=== PATIENT | female | born 1985 | race Caucasian/White ===

== ENCOUNTER 2017-03-26 14:40 | Emergency (ER) | payer OTHER ==
[~2017-03-26] VITALS: Ht 172.7 cm; Wt 74.8 kg
--- NOTE | ~2017-03-26 | CT4 ---
STS. [facility] A Service of [facility] RADIOLOGY TEXT RESULTS PATIENT: BEULAH HADDAD LOCATION: SED : 84 UNIT #: [id number] AGE: [address]: LAST HATCH SEX: F ORDER DR: [id number] [address] [address] [id number] MR#: [id number] Acc #: [id number] NAME: BEULAH HADDAD : 1985 SEX: F STUDY DATE/TIME: 03/26/2017 16:53 UNIT: SED ROOM: STUDY DESCRIPTION: CT Abd and Pelv Wo Cont Attending Physician: Last Hatch Ordering Physician: Last Hatch MEDICAL IMAGING REPORT This report is preliminary unless electronic signature is present. EXAM CT abdomen and pelvis without IV contrast COMPARISON April 18, 2021. INDICATION A 31-year-old female with left-sided flank and abdominal pain and emesis for [address] imaging abdomen and pelvis was performed without IV contrast. Coronal and sagittal reformats were constructed. Lack of IV contrast limits evaluation of adenopathy, vasculature and viscera. This CT exam was performed with one or more of the following radiation dose reduction techniques: automatic exposure control, adjustment of mA and/or kV according to patient size, and iterative reconstruction. FINDINGS There is a small fat-containing umbilical hernia. Small posterior disc protrusion L5-S1. No acute fractures or suspicious osseous lesions. Minimal subsegmental pleural-based multifocal atelectasis in both lower lobes dependently. Mild hepatomegaly with length of 18.3 cm. Unenhanced gallbladder, pancreas, spleen, adrenal glands and left kidney within normal limits. There is nonobstructive calculus in the right kidney. No ureteral calculi. No hydronephrosis or hydroureter. Urinary bladder is unremarkable. Unenhanced appearance of the uterus is unremarkable. No adnexal maximal masses are seen on this noncontrast exam. No evidence of STS. [facility] A Service of [facility] RADIOLOGY TEXT RESULTS PATIENT: BEULAH HADDAD LOCATION: SED : 84 UNIT #: [id number] AGE: [address]: LAST HATCH SEX: F ORDER DR: bowel obstruction. Prior appendectomy. Diffuse colonic stool burden. Fecalization of contents in the ileum suggestive of bowel stasis. Normal caliber of the abdominal aorta. No free fluid in the abdomen or pelvis. No pneumoperitoneum. No adenopathy. IMPRESSION 1. No acute abnormality abdomen, pelvis or imaged lower chest. 2. Nonobstructive right renal calculus. No evidence of obstructive uropathy. 3. Mild hepatomegaly, without evidence of evidence of cirrhosis. 4. Small posterior disc protrusion, L5-S1. 5. Prior appendectomy. 6. Diffuse colonic stool burden with fecalization of contents in the distal ileum suggestive of bowel stasis. Dictated by... Wade Adams M.D. THIS IS AN ELECTRONICALLY VERIFIED REPORT Wade Adams M.D. at 03/31/2017 1:22 PM Irina TD: 03/26/2017 23:22 JOB #: [id number] MEDICAL IMAGING REPORT Page 1 of 1
[2017-03-26] MEDS ORDERED: NO MEDICATIONS (15:01)
[2017-03-26 16:22] LABS: URINE SOURCE CLEAN CATCH
[2017-03-26 16:25] LABS: BASOPHIL# 0.1 X10e3 (0-0.3); BASOPHIL% 0.4 % (0-2.5); EOSINOPHIL% 0.2 % (0.0-7.0); HEMATOCRIT 44.4 % (35.0-45.0); HEMOGLOBIN 14.9 gm/dL (12.0-16.0); LYMPHOCYTE# 1.3 X10e3 (1.0-3.5); MEAN CELL VOLUME 87.3 FL (83-96); MEAN CORPUSCULAR HEMOGLOBIN 29.4 PG (28-34); MEAN CORPUSCULAR HGB CONC 33.6 g/dL (30-36); MONOCYTE# 0.7 X10e3 (0-1.0); MONOCYTE% 4.8 % (3.0-12.0); NEUTROPHIL# 11.9 X10e3 (1.5-7.1); NEUTROPHIL% 85.6 % (40-75); PLATELET COUNT 238 X10e3 (140-420); RED BLOOD COUNT 5.09 X10e (3.90-5.30); RED CELL DISTRIBUTION WIDTH 13.4 % (11.0-15.5); WHITE BLOOD COUNT 13.9 X10e3 (4.0-10.5)
[2017-03-26 16:27] LABS: URINE APPEARANCE HAZY; URINE BILIRUBIN NEG (NEG); URINE BLOOD 1+ (NEG); URINE COLOR YELLOW; URINE GLUCOSE NEG (NORM); URINE KETONE NEG (NEG); URINE LEUKOCYTE ESTERASE NEG (NEG); URINE NITRATE POS (NEG); URINE PH 6.5 (5-8); URINE PROTEIN TRACE (NEG); URINE UROBILINOGEN 0.2 MG/DL (NORM)
[2017-03-26 16:28] LABS: DIFF IND NO; MICRO INDICATED? YES
[2017-03-26 16:30] LABS: CULTURE INDICATED? YES; URINE BACTERIA 4+ (NEG); URINE SQUAMOUS EPITHELIAL CELL OCCAS /[HPF]; URINE TRANSITIONAL EPI CELLS OCCAS /[HPF]
[2017-03-26 16:31] LABS: URINE AMORPHOUS SEDIMENT AMORP URATES
[2017-03-26 16:46] LABS: ALBUMIN SERUM 4.7 g/dL (3.5-5.0); BILIRUBIN, DIRECT 0.1 mg/dL (0.0-0.2); BILIRUBIN,INDIRECT 0.4 mg/dL (0.0-0.9); BILIRUBIN,TOTAL 0.5 mg/dL (0.2-2.0); BUN/CREATININE RATIO 18.75; CALCIUM SERUM 8.9 mg/dL (8.4-10.2); CREATININE SERUM 0.8 mg/dL (0.6-1.4); GLOM FILT RATE Estimated 97.6 mL/min (>60); POTASSIUM 3.5 mmol/L (3.5-5.1); PROTEIN TOTAL SERUM 8.3 g/dL (6.0-8.3)
== END 2017-03-26 18:56 | disposition home or self-care (01) ==
LOC: SED 14:40
PROVIDERS: Physician Assistant
DX: N30.01 Acute cystitis with hematuria (principal); K59.00 Constipation, unspecified; Z87.442 Personal history of urinary calculi; F17.210 Nicotine dependence, cigarettes, uncomplicated
CPT/HCPCS: 36415; 74176; 80048; 80076; 81003; 83690; 84703; 85025; 87086; 87088; 87186; 96361; 96365; 96375; 99284; J0696; J1885; J2405

== ENCOUNTER 2017-05-01 14:00 | Inpatient (IN) | payer OTHER ==
[~2017-05-01] VITALS: Ht 172.7 cm; Wt 81.6 kg
--- NOTE | ~2017-05-01 | HP ---
Unit #: [id number] #: [id number] Patient: BEULAH HADDAD [id number] [place] [address] [id number] I MR#: [id number] NAME: BEULAH HADDAD ROOM: P251 Age: 31 Sex: F Admission Date: 05/01/2017 : 1985 Attending Physician: Girish Koch M.D. Admitting Physician: Girish Koch M.D. Primary Care Physician: Primary Care Physician No HISTORY AND PHYSICAL HISTORY OF PRESENT ILLNESS Beulah is a 31 year old admitted to [address] [place] [address] because of her drug use. PAST MEDICAL HISTORY 1. Long history of elicit substance abuse which includes benzodiazepines and IV heroin. 2. Hepatitis C. 3. History of hepatitis B. PAST SURGICAL HISTORY 1. Appendectomy. 2. T & A. 3. Oral. 4. Inguinal hernia repair. ALLERGIES No known drug allergies. SOCIAL HISTORY Smokes one pack per day. Drinks alcohol on occasion. Admits to a long history of illicit drug use to include benzodiazepines and IV heroin. FAMILY HISTORY Medically noncontributory. REVIEW OF SYSTEMS CONSTITUTIONAL: No fever or chills. HEENT: Denies any sore throat, ear pain or runny nose. CARDIOVASCULAR: Denies chest pain, irregular heart rhythm or palpitations. CHEST: Denies shortness of breath or cough. No hemoptysis. GASTROINTESTINAL: Denies nausea, vomiting, diarrhea or chronic constipation. ENDOCRINE: Denies history of increased thirst or urination. No recent significant weight loss or gain. GENITOURINARY: Denies dysuria, frequency, or hematuria. SKIN: Denies any rashes. HEMATOLOGIC: Denies history of increased bleeding or bruising. MUSCULOSKELETAL: Denies any hot, swollen joints. No generalized muscle pain. NEUROLOGIC: Denies problems with vision or speech. No frequent, severe headaches. No numbness, tingling or weakness in any extremities. Denies loss of bladder or bowel control. Unit #: [id number] #: [id number] Patient: BEULAH HADDAD CURRENT MEDICATIONS Detox protocol PHYSICAL EXAMINATION GENERAL: Alert, well-nourished, in no apparent distress. VITAL SIGNS: Blood pressure 126/82, heart rate 80, respirations 16, temperature 98.6. WEIGHT: 180. HEIGHT: 5 foot 8 inches. SKIN: Warm and dry without rash or lesion. HEENT: Normocephalic. TMs not viewed. Oral and nasal passages clear. Conjunctivae clear. Pupils equal, round and reactive to light and accommodation. Extraocular movements intact. NECK: Supple without lymphadenopathy or thyromegaly. HEART: Regular rate and rhythm without murmur. LUNGS: Clear. ABDOMEN: Soft, nontender. : Not done. EXTREMITIES: No evidence of cyanosis, clubbing or edema. Moves all extremities without focal deficit. NEUROLOGICAL: Grossly within normal limits. Cranial Nerves: II: Visual engel are intact. III, IV AND : Extraocular movements are intact. Pupils are equal, round and reactive to light. V: Facial sensation is grossly normal. VII: Facial movements and expression are normal. VIII: Auditory acuity grossly intact. IX, X: Uvula is midline. Phonation is normal. XI: Patient shrugs shoulders and turns head normally. XII: Tongue protrudes in the midline. Sensory and Motor Function: Sensory and motor sensation is grossly normal. Motor: moves all extremities well. Coordination: Gait is normal. Deep Tendon Reflexes: Intact. IMPRESSION Psychiatric admission. RECOMMENDATIONS PSYCHIATRIC: Per psychiatrist. MEDICAL: I see no contraindications to participating in facility's activities. MEDICAL PROGNOSIS Good. MEDICAL CONDITION Stable. Dictated by... Madelyn Ward P.A.-C. for Loan Lott/mary Unit #: [id number] #: [id number] Patient: BEULAH HADDAD TD: 05/02/2017 00:51 JOB #: [id number] HISTORY AND PHYSICAL Page 1 of 1 X Madelyn Ward HISTORY AND PHYSICAL
--- NOTE | ~2017-05-01 | PN ---
Unit #: [id number] #: [id number] Patient: BEULAH HADDAD [id number] [facility] [address] [place] [address] [id number] I MR#: [id number] NAME: BEULAH HADDAD ROOM: [facility] Age: 31 Sex: F Admission Date: 05/01/2017 : 1985 Attending Physician: Girish Koch M.D. Admitting Physician: Girish Koch M.D. Primary Care Physician: Primary Care Physician Prabha CAMPBELL PROGRESS NOTES DATE 05/04/2017 DISCUSSION The patient is now requesting initiation of naltrexone and is reporting interest in going to a "religious home" in her home town of [place], [place]. Her detox symptoms appear to be mitigating at this point. Dictated by... Girish Koch M.D. CB/ashley TD: 05/04/2017 15:02 JOB #: [id number] [facility] PROGRESS NOTES Page 1 of 1 X Girish Koch MD PROGRESS NOTE
--- NOTE | ~2017-05-01 | PN ---
Unit #: [id number] #: [id number] Patient: BEULAH HADDAD [id number] [facility] [address] [place] [address] [id number] I MR#: [id number] NAME: BEULAH HADDAD ROOM: 76 Age: 31 Sex: F Admission Date: 05/01/2017 : 1985 Attending Physician: Girish Koch M.D. Admitting Physician: Girish Koch M.D. Primary Care Physician: Primary Care Physician Prabha CAMPBELL PROGRESS NOTES DATE 05/05/2017 DISCUSSION The patient is abed today complaining of significant nausea and stomach discomfort related to ongoing symptoms of withdrawal. She is agreeable with the plan for followup in the intensive outpatient program, and it is my hope that her symptoms should have mitigated to the point where she can be discharged tomorrow. Dictated by... Girish Koch M.D. CB/bzhattie TD: 05/05/2017 13:56 JOB #: [id number] [facility] PROGRESS NOTES Page 1 of 1 X Girish Koch MD PROGRESS NOTE
--- NOTE | ~2017-05-01 | PN ---
Unit #: [id number] #: [id number] Patient: BEULAH HADDAD [id number] [facility] [address] [place] [address] [id number] I MR#: [id number] NAME: BEULAH HADDAD ROOM: [facility] Age: 31 Sex: F Admission Date: 05/01/2017 : 1985 Attending Physician: Girish Koch M.D. Admitting Physician: Girish Koch M.D. Primary Care Physician: Primary Care Physician Prabha CAMPBELL PROGRESS NOTES DATE 05/03/2017 DISCUSSION The patient is resting comfortably today. She continues to experience significant symptoms of opioid detox. We continue current treatment. Dictated by... Girish Koch M.D. CB/matt TD: 05/03/2017 15:13 JOB #: [id number] [facility] PROGRESS NOTES Page 1 of 1 X Girish Koch MD X PROGRESS NOTE
--- NOTE | ~2017-05-01 | DS ---
Unit #: [id number] #: [id number] Patient: BUELAH HADDAD [id number] [place] [address] [id number] I MR#: [id number] NAME: BEULAH HADDAD ROOM: [facility] Age: 31 Sex: F Admission Date: 05/01/2017 : 1985 Discharge Date: 05/06/2017 Attending Physician: Girish Koch M.D. Primary Care Physician: Primary Care Physician No DISCHARGE SUMMARY REASON FOR ADMISSION The patient is a 31-year-old white female admitted to the [facility] unit with a history of abuse of heroin and sedative/hypnotics. HOSPITAL COURSE The patient was admitted to the [address] [place] [address] and placed on routine detoxification protocol covering both sedative/hypnotics and opioids. Her stay in the hospital was a brief and uneventful one. Her detox going smoothly. By 05/06, the patient requested discharge and was agreeable for plan for follow up in the intensive outpatient program provided by this facility as per her request discharge was ordered. FINAL DIAGNOSES 1. Sedative/hypnotic abuse disorder. 2. Opioid use disorder. FOLLOWUP CARE Followup to take place in the intensive outpatient program provided by this facility. DISCHARGE MEDICATIONS The patient is discharged on no psychotropic or other medications. PROGNOSIS Considered fair. Dictated by... Girish Koch M.D. DORCAS/matt TD: 05/07/2017 20:58 JOB #: [id number] Unit #: [id number] #: [id number] Patient: BEULAH HADDAD DISCHARGE SUMMARY Page 1 of 1 X Girish Koch MD X DISCHARGE SUMMARY
--- NOTE | ~2017-05-01 | PA ---
Unit #: [id number] #: [id number] Patient: BEULAH HADDAD [id number] [facility] [address] [place] [address] [id number] I MR#: [id number] NAME: BEULAH HADDAD ROOM: P251 Age: 31 Sex: F Admission Date: 05/01/2017 : 1985 Date of Assessment: 05/02/2017 Attending Physician: Girish Koch M.D. Admitting Physician: Girish Koch M.D. Primary Care Physician: Primary Care Physician No PSYCHIATRIC ASSESSMENT IDENTIFYING INFORMATION The patient is a 31-year-old , homeless white female admitted with increasing heroin use and suicidal ideation. INFORMANT(S) Patient. RELIABILITY Good. CHIEF COMPLAINT None given. HISTORY OF PRESENT ILLNESS The patient is a 31-year-old white female admitted with increasing suicidal ideation and plan to cut her wrist. Patient reports that her "life is not going right." She has been homeless for the past 6 months after having been expelled from the domicile she had previously shared with her mother related to her ongoing heroin abuse. The patient reports that her suicide plan was cutting her wrist. She does have a history of previous suicide attempts. She was last hospitalized at this facility in 2010 under similar circumstances. She is currently on no prescribed psychotropic or other medications. She continues to complain of depressed mood and suicidal ideation when seen today. She is expressing interest in residential chemical dependence treatment. PAST PSYCHIATRIC HISTORY As above. FAMILY HISTORY Noncontributory. SOCIAL HISTORY The patient is currently homeless. She is and the mother of a 4-year-old child who is in the custody of the patient's mother. The patient reports substance use as noted previously and is a smoker. MEDICAL HISTORY Significant for a history of hepatitis B and C. MEDICATION HISTORY None. Unit #: [id number] #: [id number] Patient: BEULAH HADDAD ALLERGIES None. MENTAL STATUS EXAM At this time, reveals the patient to be a well-developed, well-nourished white female appearing her stated age in significant physical distress related to opioid withdrawal. She is awake, alert and oriented in all spheres. Her mood is mildly dysphoric. Her affect congruent. Speech is generally relevant and coherent. There are no gross deficits in memory or cognition noted. Intelligence is judged to be in the average range based on fund of knowledge. The patient is cooperative throughout the interview. She continues to endorse positive suicidal ideation during interview. She denies homicidal ideation. She denies any psychotic symptoms. Her judgement and insight appear to be intact. ASSETS AND LIABILITIES Patient's assets, motivation for change. Liabilities, lack of resources. ADMITTING DIAGNOSES 1. Opioid use disorder. 2. Dysthymic disorder. 3. Hepatitis B. 4. Hepatitis C. PSYCHIATRIC PLAN/TREATMENT GOALS The patient remains hospitalized for safety and stabilization. We will at this point hold on initiation of any psychotropic medications but will watch for mood symptoms which might dictate initiation of antidepressant medicine. I will ask the patient's psychotherapist social worker to see her regarding potential post discharge chemical dependence treatment options and we will plan to move her to a unit where she can participate in appropriate CD programming. ESTIMATED LENGTH OF STAY Three to five days. Dictated by... Girish Koch M.D. DORCAS/matt TD: 05/02/2017 12:09 JOB #: [id number] PSYCHIATRIC ASSESSMENT Page 1 of 1 X Girish Koch MD X PSYCHIATRIC ASSESSMENT
[~2017-05-01 14:00] MED LIST: NO MEDICATIONS
[2017-05-02 09:44] LABS: URINE APPEARANCE TURBID; URINE BILIRUBIN NEG (NEG); URINE BLOOD NEG (NEG); URINE COLOR YELLOW; URINE GLUCOSE NEG (NEG); URINE KETONE 1+ (NEG); URINE LEUKOCYTE ESTERASE NEG (NEG); URINE NITRATE NEG (NEG); URINE PH 6.5 (5-8); URINE PROTEIN NEG (NEG); URINE SPECIFIC GRAVITY 1.024 (1.003-1.035)
[2017-05-02 10:24] LABS: AMPHETAMINE NEG (NEG); BARBITURATES NEG (NEG); BENZODIAZEPINES NEG (NEG); COCAINE NEG (NEG); MARIJUANA NEG (NEG); OPIATES NEG (NEG); TRICYCLIC ANTIDEPRESSANTS NEG (NEG); U METHADONE NEG (NEG)
[2017-05-02 12:31] LABS: BASOPHIL% 0.4 % (0-2.5); EOSINOPHIL# 0.1 X10e3 (0-0.7); EOSINOPHIL% 1.8 % (0.0-7.0); HEMATOCRIT 35.8 % (35.0-45.0); HEMOGLOBIN 11.9 gm/dL (12.0-16.0); LYMPHOCYTE# 1.7 X10e3 (1.0-3.5); LYMPHOCYTE% 21.3 % (17.0-45.0); MEAN CELL VOLUME 86.5 FL (83-96); MEAN CORPUSCULAR HEMOGLOBIN 28.9 PG (28-34); MEAN CORPUSCULAR HGB CONC 33.4 g/dL (30-36); MEAN PLATELET VOLUME 7.1 FL (6.5-11.5); MONOCYTE# 0.5 X10e3 (0-1.0); NEUTROPHIL# 5.7 X10e3 (1.5-7.1); NEUTROPHIL% 70.5 % (40-75); PLATELET COUNT 223 X10e3 (140-420); RED BLOOD COUNT 4.14 X10e (3.90-5.30); RED CELL DISTRIBUTION WIDTH 13.6 % (11.0-15.5)
[2017-05-02 12:35] LABS: DIFF IND NO
[2017-05-02 12:49] LABS: ALBUMIN SERUM 3.2 g/dL (3.5-5.0); BILIRUBIN,TOTAL 0.6 mg/dL (0.2-2.0); CALCIUM SERUM 8.7 mg/dL (8.4-10.2); CREATININE SERUM 0.8 mg/dL (0.6-1.4); GLOM FILT RATE Estimated 97.6 mL/min (>60); POTASSIUM 3.5 mmol/L (3.5-5.1); PROTEIN TOTAL SERUM 5.8 g/dL (6.0-8.3)
== END 2017-05-06 15:25 | disposition home or self-care (01) | DRG 897 ==
LOC: POF 16:16 → P1E 16:16 → P2L 16:16 → P1E 05-02 18:47
PROVIDERS: Specialist
PROC: HZ2ZZZZ Detoxification Services for Substance Abuse Treatment (ICD-10-PCS; principal; 2017-05-02)
DX: F13.10 Sedative, hypnotic or anxiolytic abuse, uncomplicated (principal); F11.10 Opioid abuse, uncomplicated; R45.851 Suicidal ideations; B19.10 Unspecified viral hepatitis B without hepatic coma; F34.1 Dysthymic disorder; B19.20 Unspecified viral hepatitis C without hepatic coma
CPT/HCPCS: 80053; 80307; 81003; 84703; 85025; 86592